=== PATIENT | male | born 1965 | race Caucasian/White ===

== ENCOUNTER 2019-07-13 00:12 | Inpatient (IN) | payer OTHER ==
[~2019-07-13] VITALS: Ht 193 cm; Wt 71.7 kg
[2019-07-13 00:20] VITALS: Ht 193 cm; Wt 71.7 kg
[2019-07-13 01:23] LABS: BASOPHIL % 0.7 % (0-2); PLATELET COUNT 231 x10^3mcL (130-400); RED CELL DISTRIBUTION WIDTH 12.1 % (11.5-14.5)
[2019-07-13 01:37] LABS: CALCIUM 9.1 mg/dL (8.5-10.1); CARBON DIOXIDE 30.6 mmol/L (21-32); CHLORIDE SERUM 105 mmol/L (98-107); CREATININE SERUM 0.9 mg/dL (0.7-1.3); GFR1 > 60 mL/min; GLUCOSE SERUM 88 mg/dL (74-106); SODIUM SERUM 140 mmol/L (136-145)
[2019-07-13 01:43] LABS: ALBUMIN 3.8 g/dL (3.4-5.0); ALKALINE PHOSPHATASE 74 U/L (46-116); ALT/SGPT 25 U/L (16-63); AST/SGOT 19 U/L (15-37); BILIRUBIN TOTAL 0.43 mg/dL (0.20-1.00); TOTAL PROTEIN, SERUM 7.2 g/dL (6.4-8.2)
[2019-07-13] MEDS ORDERED: ASPIR 8181 MG PO (02:37)
[2019-07-13 03:07] LABS: CHOLESTEROL/HDL RATIO 4.3
[2019-07-13 03:44] VITALS: BP 112/64
[2019-07-13 06:05] VITALS: BP 107/62; BP 180/70
[2019-07-13 07:59] VITALS: BP 104/61
[2019-07-13 09:53] LABS: microscopic required? NO
[2019-07-13 11:01] LABS: AMPHETAMINE QUAL UR NONE DETECTED (See below)
[2019-07-13 12:13] LABS: UA SPECIFIC GRAVITY 1.015 (1.005-1.035); urine erythrocyte NEGATIVE (NEGATIVE)
[2019-07-13 12:23] VITALS: BP 97/56
[2019-07-13 17:38] VITALS: BP 109/60
[2019-07-13 23:31] VITALS: BP 100/62
[2019-07-14] VITALS (8 sets, daily range): BP systolic 91–124; BP diastolic 54–88
[2019-07-14 06:33] LABS: BASOPHIL % 0.4 % (0-2); PLATELET COUNT 198 x10^3mcL (130-400); RED CELL DISTRIBUTION WIDTH 13.3 % (11.5-14.5)
[2019-07-14 06:40] LABS: CALCIUM 8.9 mg/dL (8.5-10.1); CARBON DIOXIDE 28.1 mmol/L (21-32); CHLORIDE SERUM 106 mmol/L (98-107); GFR1 > 60 mL/min; GLUCOSE SERUM 77 mg/dL (74-106); POTASSIUM SERUM 3.8 mmol/L (3.5-5.1); SODIUM SERUM 142 mmol/L (136-145)
[2019-07-15 06:11] VITALS: BP 117/58
[2019-07-15 07:48] VITALS: BP 106/65
[2019-07-15 12:08] VITALS: BP 95/49
[2019-07-15 16:31] VITALS: BP 88/46
[2019-07-15 20:28] VITALS: BP 107/57
[2019-07-16 06:08] VITALS: BP 105/57
[2019-07-16 07:59] VITALS: BP 104/65
[2019-07-16 11:24] VITALS: BP 98/56
[2019-07-16 12:32] VITALS: BP 98/56
[2019-07-16 13:19] VITALS: BP 98/56
== END 2019-07-16 14:10 | disposition home or self-care (01) | DRG 145 ==
LOC: ED 00:12 → DU 02:32 → MU 17:02
PROVIDERS: Emergency Medicine; ADMIT Internal Medicine
DX: R09.1 Pleurisy (principal); F17.210 Nicotine dependence, cigarettes, uncomplicated; J44.9 Chronic obstructive pulmonary disease, unspecified; R07.89 Other chest pain; I25.10 Atherosclerotic heart disease of native coronary artery without angina pectoris; Z88.5 Allergy status to narcotic agent; Z88.6 Allergy status to analgesic agent; Z71.6 Tobacco abuse counseling; Z79.899 Other long term (current) drug therapy
CPT/HCPCS: 83880; A9500; G0378; J1885; J2785; J7030; J7050